=== PATIENT | male | born 1955 | race Caucasian/White ===

== ENCOUNTER 2019-06-06 14:44 | Emergency (ER) | payer MEDICARE, BC, SELFPAY ==
[2019-06-06 14:45] VITALS: BP 143/82; PULSE 82; RESP 18; TEMP 36.2; O2SAT 97; BMI 25.7
--- NOTE | 2019-06-06 15:55 | RAD_ITS ---
STUDY: X-RAY - PELVIS REASON FOR EXAM: Male, 64 years old. Right groin pain after golfing. TECHNIQUE: One view of the pelvis was obtained. COMPARISON: None. FINDINGS: There is a non-specific bowel gas pattern. Minimal arterial calcification. One phlebolith of the pelvis. Normal bilateral iliac wings, sacroiliac joints and visualized sacrum. Normal visualized bilateral superior and inferior pubic rami. Normal pubic symphysis. Normal ischial tuberosities. Normal visualized right femoral head. Normal right acetabulum. Normal right hip joint. Normal visualized left femoral head. Normal left acetabulum. Normal left hip joint. RAD/Pelvis 1 or 2 Views IMPRESSION: Normal x-ray examination of the pelvis. Electronically Signed: Jenna Larsen MD at 16:06 EDT , Service support ,
--- NOTE | 2019-06-06 16:24 | ED.DCSUM_ITS ---
- ER Visit Summary Date of Service: 06/06/19 Chief Complaint: I tore something in my groin. History of Present Illness: The patient is a [address] Vigil. He reports that 2 days ago he twisted his right thigh while golfing and felt 2 pops. He reports that he has a sharp, aching pain that is constant since that time. It is 8 out of 10 with movement and especially flexion of his hip. Is 3 out of 10 at rest. He denies any paresthesias distally. He is concerned because he has bruising that began today. Review of systems: General: No fever, chills, cold sweats. Cardiovascular: No chest pain, palpitations. Respiratory: No cough, shortness of breath, dyspnea on exertion. Gastrointestinal: No abdominal pain, nausea, vomiting, diarrhea, melena, or hematochezia. Genitourinary: No dysuria, frequency, hematuria. Skin: No rash. Neuro: No headache, numbness, weakness. Physical Examination: Vitals: Stable. Afebrile. General: Well-nourished and well-developed. Head: Normocephalic atraumatic. Neck: Supple, no lymphadenopathy. No JVD. Nontender. Cardiovascular: Regular rate and rhythm. No murmurs. Respiratory: No respiratory distress. Clear to auscultation bilaterally. Abdominal: Soft, nontender, nondistended, normal bowel sounds. No guarding, rebound, or peritoneal signs. Back: Nontender. Extremities: Moderate tenderness palpation to the proximal medial right thigh. There is ecchymosis present. He is neurovascular intact distal is. He is a 2+ dorsalis pedis pulse and normal sensation light touch.. Skin: Normal color, no rash. Neurologic: Alert and oriented ?3. Cranial nerves II through XII are intact. Normal strength and sensation. Psych: Normal affect. Test Results: Clinical Impression(s) from Imaging Studies Pelvis X-Ray 06/06/19 15:55 IMPRESSION: Normal x-ray examination of the pelvis. Electronically Signed: Jenna Larsen MD at 16:06 EDT , Service support , Emergency Department Course and Treatment: Patient refused pain medications. He is resting comfortably. Treatment Plan: Discussed the patient with the ecchymosis it is likely that he tore some of the muscle here. He will be discharged with [place] for pain. Instructed fall Dr. Barrera in a week for another exam. Return to the emergency department for any worsening symptoms. Disposition: To home in improved and stable condition. Impression: 1. Right groin strain. 2. Ecchymosis medial right thigh. This note was generated with [employer] dictation software. It may contain incorrect words, spelling, and punctuation that were not noted in review of the chart prior to signing ED Disposition - Plan for ED Patient: Disposition: Home or Assisted Living Instructions: Groin Strain Prescriptions: Hydrocodone Bitart/Apap 5-325 [[place] 5MG-325MG] 1 tab PO Q6H PRN PRN 3 Days #12 tab PRN Reason: Pain Prescription Printed Referrals: Fiona Barrera DO [STAFF PHYSICIAN] - 1 Week
[2019-06-06 16:45] VITALS: RESP 18
== END 2019-06-06 16:45 | disposition home or self-care (01) ==
LOC: ED 16:35
PROVIDERS: Emergency Provider Emergency Medicine
DX: S39.011A Strain of muscle, fascia and tendon of abdomen, initial encounter (principal); S70.11XA Contusion of right thigh, initial encounter; I25.10 Atherosclerotic heart disease of native coronary artery without angina pectoris; I10 Essential (primary) hypertension; Z87.891 Personal history of nicotine dependence; Z79.02 Long term (current) use of antithrombotics/antiplatelets; Z79.899 Other long term (current) drug therapy; X50.1XXA Overexertion from prolonged static or awkward postures, initial encounter; Y93.53 Activity, golf; Y92.39 Other specified sports and athletic area as the place of occurrence of the external cause; Y99.8 Other external cause status
CPT/HCPCS: 72170; 99282